=== PATIENT | female | born 1990 | race Caucasian/White ===

== ENCOUNTER 2018-03-05 17:52 | Inpatient (IN) ==
[2018-03-05] MEDS ORDERED: OXYTOCIN/DEXTROSE 5%-WATER 30 UNITS/500 ML BAG IV ONE (18:53)
[2018-03-05] MEDS ORDERED: INSULIN REGULAR, HUMAN 100 UNITS in NORMAL SALINE 100 ML IV PRN ×2 (18:53)
[2018-03-05] MEDS ORDERED: RINGER'S SOLUTION,LACTATED 1,000 ML IV ONE (18:53)
[2018-03-05] MEDS: MISOPROSTOL 100 MCG TABLET VG PRN (19:21)
[2018-03-06] MEDS: MISOPROSTOL 100 MCG TABLET VG PRN (03:02)
--- NOTE | 2018-03-06 09:02 | PN ---
Progess Note - Interim Date: 03/06/18 Time: 09:00 Narrative: 03/06/18 09:00 Patient rating her contractions 3/10 Vital signs stable. FHT: 130 baseline, reassuring contractions q 2-3 min Cervix: 50/-2 Status post 2 doses of Cytotec-last dose around 3 AM. Blood sugar this morning 83 Impression: Intrauterine at 39-2/7 weeks induction of labor for gestational diabetes Plan: Continue present plan
--- NOTE | 2018-03-06 12:42 | PN ---
Progess Note - Interim Date: 03/06/18 Time: 12:39 Narrative: 03/06/18 12:39 Patient rates her contractions is 3 out of 10 still Vital signs stable. FHT: 140s baseline, reassuring Contractions q 2-4 min with occasional couplets Cervix: 1/50/-3 Larkin bulb inserted through the cervical canal and inflated with 60 mL of saline Impression: Intrauterine at 39-2/7 weeks induction of labor for gestational diabetes Blood sugar 82 Plan: Continue present plan
[2018-03-06] MEDS ORDERED: OXYTOCIN/DEXTROSE 5%-WATER 30 UNITS/500 ML BAG IV ONE ×2 (12:59→22:21)
[2018-03-06] MEDS ORDERED: BUPIVACAINE HCL/0.9 % NACL/PF 250 ML EP PRN (14:58)
[2018-03-06] MEDS ORDERED: NALOXONE HCL 1 MG/1 ML SYRG IV PRN (14:58)
[2018-03-06] MEDS ORDERED: ONDANSETRON HCL/PF 2 MG/ML VIAL IV PRN (14:58)
[2018-03-06] MEDS ORDERED: fentaNYL CITRATE/PF 50 MCG/ML AMPUL IT SCH (15:00)
--- NOTE | 2018-03-06 15:09 | ANES ---
Anesthesia Pre Procedure Eval HOME MEDICATIONS RX: Vits96/Iron Fum/Folic [ S] 1 tab PO DAILY 08/19/14 [Last Taken 03/05/18] Allergies/Adverse Reactions: Allergies Allergy/AdvReac Type Severity Reaction Status Date / Time No Known Allergies Allergy Verified 03/05/18 18:46 - Planned Procedure Planned Procedure: INDUCTION - Airway/Neck/Teeth Within Normal Limits:: Yes Teeth Condition: Intact Mallampatti Score: 2 Thyromental (T-M) distance: > 6 cm Mandibulo Hyoid distance: > 3 cm - Respiratory Respiratory: chest non-tender, lungs clear Smoking Status: Never smoker Sleep Apnea currently treated: No Sleep Apnea by current assessment: No - Cardiovascular Patient History - Cardiac/Respiratory: No pertinent hx - CSE Tolerates Activity: Good Heart Sounds: S1 & S2, Regular - Anesthesia Assessment and Plan ASA Class: II, E Anesthesia Type Plan: Epidural Planned difficult intubation/equipment available: No
--- NOTE | 2018-03-06 15:28 | ANES ---
Anesthesia Procedure Note Procedure Note: ANESTHESIA PROCEDURE NOTE Date of Procedure: 03/06/2018 Time of procedure: 1510. Performed by: FABIO Arshad CRNA, MSN Costume Cutter: Chelsea Queen RN. Preprocedure diagnosis: Active labor, labor pain. Post procedure diagnosis: Same. Procedure:Epidural for labor analgesia L3,4. Indications: Labor pain. Findings: See below. Details of the procedure: The patient was placed on the side of the bed in sitting positionand prepped with DuraPrep then draped in a sterile fashion. Lidocaine 1% was infiltrated to the skin and subcutaneous tissues at the level of the L3 4 interspace. An 18-gauge Touhy needle was used to approach the epidural space with loss of resistance technique. Once loss of resistance was achieved a 27-gauge spinal needle was passed through the epidural needle and CSF was contacted. After CSF returned, 20 mcg of fentanyl was injected in the spinal needle was removed the epidural catheter was then threaded approximately 4 cm in the epidural needle was removed. The catheter was taped in place and after careful aspiration 3 mL of 1.5% lidocaine with 1-200,000 epinephrine was injected without change in maternal heart rate or sensorium. . EBL: Minimal. Fluids: N/A. Specimen: N/A. Post procedure condition: The patient tolerated the procedure well with good relief. No complications were noted. Thank you for this consultation. Refugio Kimball CRNA, ARNP, MSN
[2018-03-06] MEDS ORDERED: LIDOCAINE HCL 50 ML VIAL PERI PRN (18:57)
--- NOTE | 2018-03-06 22:18 | OR ---
Operative Report - Dictated Report Narrative: Spontaneous vaginal delivery of viable female at 2201 on 7 10/13/2014 with Apgars 9 and 9, weighing 3094 g in ELGIN position. Cord clamping delayed approximately 1 minute Placenta delivered complete, intact, with three vessel cord Estimated blood loss: less than 50 ml Anesthesia: epidural Lacerations: None History for MU Definition: * The number of deliveries resulting in a live the patient experienced prior to current hospitalization * The previous delivery of live twins or any live multiple gestation is considered one live event. *If primagravida or nulliparous is documented select zero for the number of previous live births. Live Events: 1
[2018-03-06] MEDS ORDERED: GLYCERIN/WITCH HAZEL LEAF 40 APPL BOX TP PRN (22:21)
[2018-03-06] MEDS ORDERED: HYDROCORTISONE 30 APPL TUBE TP PRN (22:21)
[2018-03-06] MEDS ORDERED: oxyCODONE HCL/ACETAMINOPHEN 1 TAB TABLET PO PRN ×2 (22:21)
[2018-03-06] MEDS ORDERED: BENZOCAINE/MENTHOL 81 SPRAY CAN TP PRN (22:21)
[2018-03-06] MEDS ORDERED: BISACODYL 10 MG SUPP.RECT RC PRN (22:21)
[2018-03-06] MEDS ORDERED: SENNOSIDES 8.6 MG TABLET PO PRN (22:21)
[2018-03-07] MEDS: IBUPROFEN 800 MG TABLET PO PRN ×2 (03:32→21:32)
--- NOTE | 2018-03-07 09:05 | PN ---
Progess Note - Interim Date: 03/07/18 Time: 09:04 Narrative: 03/07/18 09:04 Patient denies complaints. Lochia wnl abdomen - soft, nontender Uterus -firm, at umbilicus - 1 no calf tenderness Impression: day #1 - s/p spontaneous vaginal delivery. Gestational diabetes-stable Plan: Continue routine care. Check blood sugars in a.m.
[2018-03-07] MEDS: PRENATAL VITS96/IRON FUM/FOLIC 1 TAB TABLET PO SCH (09:22)
[2018-03-07] MEDS: DOCUSATE SODIUM 100 MG CAPSULE PO SCH ×2 (09:22→20:02)
[2018-03-08] MEDS: DOCUSATE SODIUM 100 MG CAPSULE PO SCH ×2 (11:57→21:09)
[2018-03-08] MEDS: PRENATAL VITS96/IRON FUM/FOLIC 1 TAB TABLET PO SCH (11:57)
[2018-03-08 20:50] VITALS: BP 115/62
== END 2018-03-08 23:59 | disposition home or self-care (01) | DRG 775 ==
LOC: OB 17:52
PROVIDERS: ADMIT Obstetrics & Gynecology; ATTEND Obstetrics & Gynecology
DX: Z3A.39 39 weeks gestation of pregnancy; O24.420 Gestational diabetes mellitus in childbirth, diet controlled; Z37.0 Single live birth
CPT/HCPCS: 59025; 88307